=== PATIENT | male | born 1935 | race Caucasian/White ===

== ENCOUNTER 2016-11-12 13:45 | Emergency (ER) | payer MEDICARE, OTHER ==
[~2016-11-12] VITALS: Ht 165.1 cm; Wt 90.9 kg
[~2016-11-12 13:45] MED LIST: AMLO5TAB66 PO; BENA20TA3 PO; CHOL200035 PO; CYAN1TAB44 PO; FURO80TA3 PO; INSLAN SQ; INSNOV SQ; LORA10TA7 PO; MONT10TA21 PO; OMEP20 PO; OXYB15TA PO; SEVEC800 PO; SITA50 PO
[2016-11-12 14:02] LABS: GLUCOSE,POINT OF CARE 139 MG/DL (70-110)
[2016-11-12] MEDS ORDERED: CLOT30SO2 PO (14:10)
[2016-11-12] MEDS ORDERED: AMLO-512 PO (14:10)
[2016-11-12 15:27] LABS: BASOPHILS # (AUTO) 0.02 K/uL (0.00-0.20); BASOPHILS % (AUTO) 0.3 % (0.0-2.0); EOSINOPHILS # (AUTO) 0.07 K/uL (0.00-0.70); EOSINOPHILS % (AUTO) 0.92 % (1.0-6.0); HEMATOCRIT 35.3 % (41-53); HEMOGLOBIN 11.5 g/dL (13.5-17.5); LYMPHOCYTES # (AUTO) 1.1 K/uL (1.0-4.8); LYMPHOCYTES % (AUTO) 13.8 % (22.0-44.0); MEAN CORPUSCULAR HEMOGLOBIN 29.4 pg (26.0-34.0); MEAN CORPUSCULAR HGB CONC 32.6 G/dL (31.0-37.0); MEAN CORPUSCULAR VOLUME 90 fL (80-100); MONOCYTES # (AUTO) 0.6 K/uL (0.1-1.0); MONOCYTES % (AUTO) 7.6 % (2.0-9.0); NEUTROPHILS # (AUTO) 6.2 K/uL (1.8-7.7); NEUTROPHILS % (AUTO) 77.5 % (40.0-70.0); PLATELET COUNT (AUTO) 210 K/uL (150-450); RED BLOOD CELL COUNT(AUTO) 3.91 MIL/uL (4.50-5.90); RED CELL DISTRIBUTION WIDTH 16.6 % (11.5-14.5)
[2016-11-12 15:35] LABS: ANION GAP 11 mmol/L (8-16); CALCIUM, TOTAL 9.1 mg/dL (8.8-10.5); CARBON DIOXIDE 30 mmol/L (22-29); CHLORIDE 95 mmol/L (98-107); CREATININE 11.43 mg/dL (0.60-1.30); GLOMERULAR FILTR. RATE CALC 4 mL/min (>60); POTASSIUM 5.2 mmol/L (3.5-5.1); SODIUM SERUM 136 mmol/L (136-145); UREA NITROGEN, BLOOD 73 mg/dL (7-18)
[2016-11-12 15:38] LABS: PROTHROMBIN TIME 10.5 SEC (9.4-11.6)
[2016-11-12 15:46] LABS: B-TYPE NATRIURETIC PEPTIDE 234 pg/mL (0-100)
[2016-11-12 15:59] LABS: ALANINE AMINOTRANSFERASE 11 U/L (12-78); ALBUMIN 3.2 g/dL (3.4-5.0); ASPARTATE AMINOTRANSFERASE 8 U/L (15-37); BILIRUBIN,TOTAL 0.4 mg/dL (0.1-1.0); CREATINE KINASE, TOTAL 267 U/L (39-308); TOTAL PROTEIN, SERUM 7.2 g/dL (6.4-8.2)
[2016-11-12] MEDS ORDERED: ALBUTEROL SULFATE 2.5 MG/0.5 ML NEB SOLUTION NEB ONE (16:20)
[2016-11-12] MEDS ORDERED: 0.9% SODIUM CHLORIDE 5 ML NEB SOLUTION NEB ONE (16:23)
[2016-11-12 19:14] VITALS: BP 154/72
== END 2016-11-12 19:17 | disposition home or self-care (01) ==
LOC: EMS 13:49
DX: E11.22 Type 2 diabetes mellitus with diabetic chronic kidney disease (principal); I12.0 Hypertensive chronic kidney disease with stage 5 chronic kidney disease or end stage renal disease; N18.6 End stage renal disease; E87.5 Hyperkalemia; Z79.4 Long term (current) use of insulin; Z99.2 Dependence on renal dialysis
CPT/HCPCS: 70450; 82962; 93005; 94640; 99285

== ENCOUNTER 2016-12-20 11:59 | Emergency (ER) | payer MEDICARE, OTHER ==
[~2016-12-20] VITALS: Ht 165.1 cm; Wt 99.0 kg
[~2016-12-20 11:59] MED LIST changes: +AMLO-512 PO; -AMLO5TAB66 PO; +CLOT30SO2 PO
[2016-12-20 12:18] LABS: GLUCOSE,POINT OF CARE 149 MG/DL (70-110)
[2016-12-20 14:24] LABS: BASOPHILS # (AUTO) 0.06 K/uL (0.00-0.20); BASOPHILS % (AUTO) 0.7 % (0.0-2.0); EOSINOPHILS # (AUTO) 0.35 K/uL (0.00-0.70); EOSINOPHILS % (AUTO) 4.03 % (1.0-6.0); HEMATOCRIT 30.9 % (41-53); LYMPHOCYTES # (AUTO) 1.4 K/uL (1.0-4.8); LYMPHOCYTES % (AUTO) 15.8 % (22.0-44.0); MEAN CORPUSCULAR HEMOGLOBIN 30.2 pg (26.0-34.0); MEAN CORPUSCULAR HGB CONC 32.2 G/dL (31.0-37.0); MEAN CORPUSCULAR VOLUME 94 fL (80-100); MONOCYTES # (AUTO) 0.8 K/uL (0.1-1.0); MONOCYTES % (AUTO) 9.7 % (2.0-9.0); NEUTROPHILS % (AUTO) 69.9 % (40.0-70.0); PLATELET COUNT (AUTO) 225 K/uL (150-450); RED CELL DISTRIBUTION WIDTH 15.5 % (11.5-14.5); WHITE BLOOD COUNT (AUTO) 8.6 K/uL (4.5-11.0)
[2016-12-20 14:35] LABS: ANION GAP 5 mmol/L (8-16); CALCIUM, TOTAL 8.1 mg/dL (8.8-10.5); CARBON DIOXIDE 35 mmol/L (22-29); CHLORIDE 95 mmol/L (98-107); CREATININE 9.84 mg/dL (0.60-1.30); GLOMERULAR FILTR. RATE CALC 5 mL/min (>60); POTASSIUM 5.1 mmol/L (3.5-5.1); SODIUM SERUM 135 mmol/L (136-145); UREA NITROGEN, BLOOD 46 mg/dL (7-18)
[2016-12-20 14:46] LABS: TROPONIN I < 0.02 ng/mL (0.00-0.05)
[2016-12-20 15:01] LABS: ALANINE AMINOTRANSFERASE 13 U/L (12-78); ALBUMIN 3.1 g/dL (3.4-5.0); ASPARTATE AMINOTRANSFERASE 7 U/L (15-37); BILIRUBIN,TOTAL 0.4 mg/dL (0.1-1.0); CREATINE KINASE MB 2.7 ng/mL (0-5); CREATINE KINASE, TOTAL 199 U/L (39-308); TOTAL PROTEIN, SERUM 6.9 g/dL (6.4-8.2)
[2016-12-20 15:17] LABS: AMMONIA < 10 umol/L (11-32)
[2016-12-20 16:36] LABS: ADD UA MICROSCOPIC YES; APPEARANCE,URINE CLEAR (CLEAR); GLUCOSE, URINE (UA) 250 mg/dL (NEGATIVE); KETONES,URINE NEGATIVE (NEGATIVE); LEUKOCYTE ESTERASE ,URINE NEGATIVE (NEGATIVE); OCCULT BLOOD,URINE MODERATE (NEGATIVE); PROTEIN,URINE SEE CONFIRM (NEGATIVE)
[2016-12-20 16:43] LABS: SQUAMOUS EPITHELIAL CELL,UR Few /LPF (None Seen); SULFOSALICYLIC ACID,URINE 3+ (Negative)
[2016-12-20 17:04] VITALS: BP 187/88
== END 2016-12-20 17:29 | disposition home or self-care (01) ==
LOC: EMS 12:02
DX: R51 Headache (principal); R41.3 Other amnesia; R44.1 Visual hallucinations; I12.0 Hypertensive chronic kidney disease with stage 5 chronic kidney disease or end stage renal disease; E11.22 Type 2 diabetes mellitus with diabetic chronic kidney disease; N18.6 End stage renal disease; Z99.2 Dependence on renal dialysis; Z79.4 Long term (current) use of insulin
CPT/HCPCS: 51701; 70450; 82962; 93005; 99285

== ENCOUNTER 2017-05-15 09:27 | Emergency (ER) | payer MEDICARE, OTHER ==
[~2017-05-15] VITALS: Ht 165.1 cm; Wt 93.2 kg
[~2017-05-15 09:27] MED LIST changes: +ACET-2247 PO; +ASPI-1182 PO; +AUD NEB; +BISA10S PR; -CLOT30SO2 PO; +DSS100 PO; +EPOE10IM SQ; +FOLI1CAP2 PO; +HEPA500018 SQ; +PANT40TA25 PO; +PERCT PO
[2017-05-15] MEDS ORDERED: DOXY100C PO (09:50)
[2017-05-15 13:14] VITALS: BP 149/89
== END 2017-05-15 15:07 | disposition home or self-care (01) ==
LOC: EMS 09:28
DX: S30.0XXA Contusion of lower back and pelvis, initial encounter (principal); J45.909 Unspecified asthma, uncomplicated; K21.9 Gastro-esophageal reflux disease without esophagitis; I13.2 Hypertensive heart and chronic kidney disease with heart failure and with stage 5 chronic kidney disease, or end stage renal disease; E11.22 Type 2 diabetes mellitus with diabetic chronic kidney disease; N18.6 End stage renal disease; I50.9 Heart failure, unspecified; Z99.2 Dependence on renal dialysis; Z79.82 Long term (current) use of aspirin; W05.0XXA Fall from non-moving wheelchair, initial encounter; Y93.89 Activity, other specified; Y92.89 Other specified places as the place of occurrence of the external cause; Y99.8 Other external cause status
CPT/HCPCS: 72170; 99283

== ENCOUNTER → 2017-10-09 | Outpatient (CLI) | payer MEDICARE, OTHER ==
[~2017-10-09] MED LIST changes: -BENA20TA3 PO; -CHOL200035 PO; -CYAN1TAB44 PO; +DOXY100C PO; -EPOE10IM SQ; -FURO80TA3 PO; +GADOBUTROL 1 MMOL/ML 10 ML VIAL IVP ONE; -INSLAN SQ; -OXYB15TA PO; -SITA50 PO
== END | disposition home or self-care (01) ==
LOC: RADMN 13:31
PROVIDERS: ATTEND Hospitalist
DX: L98.419 Non-pressure chronic ulcer of buttock with unspecified severity (principal); R60.0 Localized edema; M86.9 Osteomyelitis, unspecified
CPT/HCPCS: 72197; A9585

== ENCOUNTER → 2017-11-12 | Outpatient (CLI) | payer MEDICARE, OTHER ==
[~2017-11-12] MED LIST changes: +CHOL200016 PO; +COLL30OI TP; +CYAN1TAB44 PO; +ESOM40CA54 PO; +FURO80 PO; -GADOBUTROL 1 MMOL/ML 10 ML VIAL IVP ONE; +HYDR-4031 PO; +INSLAN SQ; +OXYB15TA PO; +SITA50 PO
[2017-11-12 11:31] VITALS: BP 127/52
== END | disposition home or self-care (01) ==
LOC: HBOWC 10:55
PROVIDERS: ATTEND Surgery Plastic and Reconstructive Surgery
DX: L89.324 Pressure ulcer of left buttock, stage 4 (principal); L89.152 Pressure ulcer of sacral region, stage 2; M86.9 Osteomyelitis, unspecified
CPT/HCPCS: 11042; 11044

== ENCOUNTER → 2017-11-19 | Outpatient (CLI) | payer MEDICARE, OTHER ==
[~2017-11-19] MED LIST changes: -ASPI-1182 PO; -DOXY100C PO; -DSS100 PO; -HEPA500018 SQ; -OMEP20 PO
[2017-11-19 12:12] VITALS: BP 132/60
== END | disposition home or self-care (01) ==
LOC: HBOWC 10:47
PROVIDERS: ATTEND Surgery Plastic and Reconstructive Surgery
DX: E11.622 Type 2 diabetes mellitus with other skin ulcer (principal); L89.324 Pressure ulcer of left buttock, stage 4; L98.411 Non-pressure chronic ulcer of buttock limited to breakdown of skin; E11.69 Type 2 diabetes mellitus with other specified complication; M86.9 Osteomyelitis, unspecified; I11.0 Hypertensive heart disease with heart failure; I50.9 Heart failure, unspecified; K21.9 Gastro-esophageal reflux disease without esophagitis
CPT/HCPCS: 11042

== ENCOUNTER → 2017-11-26 | Outpatient (CLI) | payer MEDICARE, OTHER ==
[2017-11-26 11:29] VITALS: BP 107/53
== END | disposition home or self-care (01) ==
LOC: HBOWC 10:52
PROVIDERS: ATTEND Surgery Plastic and Reconstructive Surgery
DX: S71.102D Unspecified open wound, left thigh, subsequent encounter (principal); S31.829D Unspecified open wound of left buttock, subsequent encounter; K21.9 Gastro-esophageal reflux disease without esophagitis; I11.0 Hypertensive heart disease with heart failure; I50.9 Heart failure, unspecified; E11.69 Type 2 diabetes mellitus with other specified complication; M86.9 Osteomyelitis, unspecified; X58.XXXD Exposure to other specified factors, subsequent encounter
CPT/HCPCS: 11043

== ENCOUNTER → 2017-12-03 | Outpatient (CLI) | payer MEDICARE, OTHER ==
[2017-12-03 11:46] VITALS: BP 110/77
== END | disposition home or self-care (01) ==
LOC: HBOWC 11:00
PROVIDERS: ATTEND Surgery Plastic and Reconstructive Surgery
DX: S71.102D Unspecified open wound, left thigh, subsequent encounter (principal); K21.9 Gastro-esophageal reflux disease without esophagitis; I11.0 Hypertensive heart disease with heart failure; I50.9 Heart failure, unspecified; E11.69 Type 2 diabetes mellitus with other specified complication; M86.9 Osteomyelitis, unspecified; X58.XXXD Exposure to other specified factors, subsequent encounter